=== PATIENT | female | born 1950 | race Native Hawaiian/Other Pacific Islander ===

== ENCOUNTER 2023-07-28 12:29 | Observation (INO) | payer OTHER ==
[~2023-07-28] VITALS: Ht 162.6 cm; Wt 56.4 kg
[2023-07-28 12:57] VITALS: BP 178/73; TEMP 97.7
[2023-07-28 13:21] LABS: PLATELET COUNT 107 K/uL (152-353)
[2023-07-28 13:30] LABS: POTASSIUM 5.2 mmol/L (3.6-5.2)
[2023-07-28 14:21] VITALS: BP 167/67
[2023-07-28 16:08] VITALS: BP 202/82; TEMP 98.5; Ht 162.6 cm; Wt 56.4 kg
[2023-07-28] MEDS ORDERED: METHADONE10 MG PO (16:43)
[2023-07-28] MEDS ORDERED: MOBIC15 MG PO (16:43)
[2023-07-28] MEDS ORDERED: LIPITOR40 MG PO (16:44)
[2023-07-28] MEDS ORDERED: ESOM40CA PO (16:44)
[2023-07-28] MEDS ORDERED: DULOXETINE HCL20 MG PO (16:45)
[2023-07-28] MEDS ORDERED: TIZA4TAB5 PO (16:45)
[2023-07-28] MEDS ORDERED: ZESTRIL40 MG PO (16:45)
[2023-07-28] MEDS ORDERED: ASA LOW DOSE81 MG PO (16:46)
[2023-07-28] MEDS ORDERED: CHOLECALCIFEROL PO (16:46)
[2023-07-28] MEDS ORDERED: POTASSIUM CITRATE (16:47)
[2023-07-28] MEDS ORDERED: CALCIUM600 M1 PO (16:47)
[2023-07-28] MEDS ORDERED: [UNRECOGNIZED DRUG - OTHER] PO (16:48)
[2023-07-28 19:44] VITALS: BP 147/74; TEMP 98.5
[2023-07-28 23:54] VITALS: BP 176/82; TEMP 98.1
[2023-07-29 03:41] VITALS: BP 157/71; TEMP 97.8
[2023-07-29 04:58] LABS: PLATELET COUNT 104 K/uL (152-353)
[2023-07-29 08:00] VITALS: BP 170/80; TEMP 98.1
[2023-07-29 12:00] VITALS: BP 178/77; TEMP 97.5
== END 2023-07-29 15:07 | disposition home or self-care (01) ==
LOC: ED 12:29 → MED/SURG 14:25
PROVIDERS: Family Medicine; ADMIT Nurse Practitioner Family; ATTEND Internal Medicine Endocrinology, Diabetes & Metabolism
DX: M94.0 Chondrocostal junction syndrome [Tietze] (principal); R07.89 Other chest pain; I25.10 Atherosclerotic heart disease of native coronary artery without angina pectoris; I10 Essential (primary) hypertension; E78.49 Other hyperlipidemia; J44.9 Chronic obstructive pulmonary disease, unspecified; K21.9 Gastro-esophageal reflux disease without esophagitis; R73.03 Prediabetes; G89.4 Chronic pain syndrome; Z72.0 Tobacco use
CPT/HCPCS: 80048; 80053; 80061; 84484; 85027; 85379; 93005; 96372; 96375; 99221; 99284; G0378; J1650; J2270; Q9963

== ENCOUNTER 2023-08-22 11:30 | Outpatient (CLI) | payer OTHER ==
[~2023-08-22 11:30] MED LIST: ASA LOW DOSE81 MG PO; CALCIUM600 M1 PO; CHOLECALCIFEROL PO; DULOXETINE HCL20 MG PO; ESOM40CA PO; LIPITOR40 MG PO; METHADONE10 MG PO; MOBIC15 MG PO; POTASSIUM CITRATE; TIZA4TAB5 PO; ZESTRIL40 MG PO; [UNRECOGNIZED DRUG - OTHER] PO
== END 2023-08-22 19:52 | disposition home or self-care (01) ==
LOC: US 11:30
PROVIDERS: ATTEND Nurse Practitioner Family
DX: R22.42 Localized swelling, mass and lump, left lower limb (principal)